=== PATIENT | male | born 1985 ===

== ENCOUNTER 2017-07-10 14:27 | Emergency (ER) | payer OTHER ==
[2017-07-10 14:43] VITALS: BP 138/81; PULSE 88; RESP 18; TEMP 97.7; O2SAT 98
[2017-07-10 16:46] LABS: BASO # 0.1 K/uL (0.0-0.2); EOS # 0.1 K/uL (0.0-0.7); EOS % 1.9 % (0.0-4.0); HEMOGLOBIN 16.5 g/dL (12.0-18.0); LYMPH # 1.9 K/uL (1.0-4.3); LYMPH % 26.1 % (20.0-40.0); MEAN CELL VOLUME 91.6 fl (80.0-94.0); MEAN CORPUSCULAR HEMOGLOBIN 31.9 pg (27.0-31.0); MEAN CORPUSCULAR HGB CONC 34.8 g/dL (33.0-37.0); MEAN PLATELET VOLUME 8.9 fl (7.2-11.7); MONO # 0.7 K/uL (0.0-0.8); MONO % 9.2 % (0.0-10.0); NEUT # 4.5 K/uL (1.8-7.0); NEUT % 61.8 % (50.0-75.0); NRBC % 0.1 % (0.0-0.0); RBC 5.18 Mil/uL (4.40-5.90); RED CELL DISTRIBUTION WIDTH 12.7 % (11.5-14.5); WHITE BLOOD COUNT 7.2 K/uL (4.8-10.8)
[2017-07-10 17:01] LABS: ALB/GLOB RATIO 1.4 (1.0-2.1); ALBUMIN 4.8 g/dL (3.5-5.0); ALT/SGPT 33 U/L (21-72); AST/SGOT 23 U/L (17-59); BLOOD UREA NITROGEN 16 mg/dl (9-20); CALCIUM 9.6 mg/dL (8.4-10.2); GFR AFRICAN-AMERICAN > 60; GFR NON-AFRICAN AMERICAN > 60
--- NOTE | 2017-07-10 17:10 | RAD ---
HISTORY: Left sided chest pain COMPARISON: No prior. TECHNIQUE: Chest PA and lateral FINDINGS: LUNGS: No active pulmonary disease. PLEURA: No significant pleural effusion identified. No pneumothorax apparent. CARDIOVASCULAR: Normal. OSSEOUS STRUCTURES: No significant abnormalities. VISUALIZED UPPER ABDOMEN: Normal. OTHER FINDINGS: None. IMPRESSION: No active disease.
--- NOTE | 2017-07-10 17:54 | ED PDOC ---
HPI: Back Time Seen by Provider: 07/10/17 14:46 Chief Complaint (Nursing): Abdominal Pain Chief Complaint (Provider): Left sided back pain History Per: Patient History/Exam Limitations: no limitations Onset/Duration Of Symptoms: Days (2 weeks ) Current Symptoms Are (Timing): Still Present Quality Of Discomfort: Sharp (Intermittent ) Severity: Moderate Pain Scale Rating Of: 8 Previous Symptoms: None Associated Symptoms: None Additional Complaint(s): PT reports pain for 2 weeks but feels it is getting worse. Pt has not been taking anything for pain. Denies SOB. Past Medical History Reviewed: Historical Data, Nursing Documentation, Vital Signs Vital Signs: Last Vital Signs Temp 97.7 F 07/10/17 14:41 Pulse 88 07/10/17 14:41 Resp 18 07/10/17 14:41 BP 138/81 07/10/17 14:41 Pulse Ox 98 07/10/17 14:41 - Medical History PMH: Hyperlipidemia Denies: Chronic Kidney Disease - Surgical History Surgical History: No Surg Hx - Family History Family History: States: No Known Family Hx - Living Arrangements Living Arrangements: With Family - Social History Current smoker - smoking cessation education provided: No Alcohol: None Drugs: Denies - Home Medications Home Medications: Ambulatory Orders Medication Instructions Recorded Cyclobenzaprine [Cyclobenzaprine 10 mg PO Q8H PRN #12 tab 07/10/17 HCl] Ibuprofen [Motrin Tab] 800 mg PO Q6H PRN #20 tab 07/10/17 - Allergies Allergies/Adverse Reactions: Allergies Allergy/AdvReac Type Severity Reaction Status Date / Time No Known Allergies Allergy Verified 07/10/17 14:41 Review of Systems ROS Statement: Except As Marked, All Systems Reviewed And Found Negative Constitutional: Negative for: Fever, Chills Respiratory: Negative for: Cough, Shortness of Breath Musculoskeletal: Positive for: Back Pain Physical Exam - Reviewed Nursing Documentation Reviewed: Yes Vital Signs Reviewed: Yes - Physical Exam Appears: Positive for: Well, Non-toxic, No Acute Distress Head Exam: Positive for: ATRAUMATIC, NORMAL INSPECTION, NORMOCEPHALIC Skin: Positive for: Normal Color, Warm, DRY Eye Exam: Positive for: Normal appearance ENT: Positive for: Normal ENT Inspection Neck: Positive for: Normal, Painless ROM Cardiovascular/Chest: Positive for: Regular Rate, Rhythm Respiratory: Positive for: Normal Breath Sounds. Negative for: Accessory Muscle Use, Respiratory Distress Gastrointestinal/Abdominal: Positive for: Normal Exam. Negative for: Tenderness Back: Positive for: Normal Inspection, Other (Tenderness left middle back with palpation ). Negative for: L CVA Tenderness, R CVA Tenderness, Vertebral Tenderness, Muscle Spasm Extremity: Positive for: Normal ROM Neurologic/Psych: Positive for: Alert, Oriented - Laboratory Results Result Diagrams: 07/10/17 16:36 07/10/17 16:36 - ECG O2 Sat by Pulse Oximetry: 98 Disposition - Clinical Impression Clinical Impression: Back pain - Patient ED Disposition Is Patient to be Admitted: No Counseled Patient/Family Regarding: Diagnosis, Need For Followup, Rx Given - Disposition Disposition: Routine/Home Disposition Time: 17:49 Condition: GOOD Prescriptions: Cyclobenzaprine [Cyclobenzaprine HCl] 10 mg PO Q8H PRN #12 tab PRN Reason: Muscle Spasm Ibuprofen [Motrin Tab] 800 mg PO Q6H PRN #20 tab PRN Reason: Pain Instructions: Musculoskeletal Pain (ED) Forms: [facility] (Setswana) Print Language: [place]
== END 2017-07-10 18:32 | disposition home or self-care (01) ==
LOC: H.ER 14:27 → EDBD 14:27 → H.ER 18:32
DX: M54.9 Dorsalgia, unspecified (principal); E78.5 Hyperlipidemia, unspecified

== ENCOUNTER 2017-07-22 23:09 | Emergency (ER) | payer SELFPAY ==
[2017-07-22 23:30] VITALS: RESP 18; O2SAT 99
--- NOTE | 2017-07-23 00:17 | ED PDOC ---
HPI: General Adult Time Seen by Provider: 07/23/17 00:17 Chief Complaint (Nursing): Flu-like Symptoms Chief Complaint (Provider): flu like symptoms History Per: Patient Additional Complaint(s): 32-year-old male presents with fever, nausea, vomiting, chills and body aches that started earlier today. Patient took Tylenol at 1 PM and then again at 9 PM. He vomited shortly after the second dose of Tylenol this evening. Denies any associated abdominal pain or diarrhea. PMD: none Past Medical History Reviewed: Historical Data, Nursing Documentation, Vital Signs Vital Signs: Last Vital Signs Temp 99.3 F 07/22/17 23:27 Pulse 98 H 07/22/17 23:27 Resp 18 07/22/17 23:27 BP 122/69 07/22/17 23:27 Pulse Ox 99 07/23/17 01:01 - Medical History PMH: Hyperlipidemia - Surgical History Surgical History: No Surg Hx - Family History Family History: States: No Known Family Hx - Living Arrangements Living Arrangements: With Family - Social History Current smoker - smoking cessation education provided: Yes (5 cigarettes per day ) Alcohol: None Drugs: Denies - Home Medications Home Medications: Ambulatory Orders Medication Instructions Recorded Cyclobenzaprine [Cyclobenzaprine 10 mg PO Q8H PRN #12 tab 07/10/17 HCl] Ibuprofen [Motrin Tab] 800 mg PO Q6H PRN #20 tab 07/10/17 Ondansetron [Zofran Odt] 4 mg PO ASDIR PRN #10 odt 07/23/17 Oseltamivir Phosphate [Tamiflu] 75 mg PO BID #10 capsule 07/23/17 - Allergies Allergies/Adverse Reactions: Allergies Allergy/AdvReac Type Severity Reaction Status Date / Time No Known Allergies Allergy Verified 07/10/17 14:41 Review of Systems ROS Statement: Except As Marked, All Systems Reviewed And Found Negative Constitutional: Positive for: Fever, Chills, Other (body aches) Cardiovascular: Negative for: Chest Pain Respiratory: Positive for: Cough Gastrointestinal: Positive for: Nausea, Vomiting. Negative for: Abdominal Pain , Diarrhea Neurological: Positive for: Headache. Negative for: Dizziness Physical Exam - Reviewed Nursing Documentation Reviewed: Yes Vital Signs Reviewed: Yes - Physical Exam Appears: Positive for: Well, Non-toxic, No Acute Distress Skin: Negative for: Rash Eye Exam: Positive for: Normal appearance ENT: Positive for: Normal ENT Inspection Neck: Positive for: Normal Cardiovascular/Chest: Positive for: Regular Rate, Rhythm Respiratory: Positive for: Normal Breath Sounds. Negative for: Wheezing, Respiratory Distress Gastrointestinal/Abdominal: Positive for: Soft. Negative for: Tenderness Back: Positive for: Normal Inspection Extremity: Positive for: Normal ROM Neurologic/Psych: Positive for: Alert, Oriented - Laboratory Results Result Diagrams: 07/23/17 01:00 07/23/17 01:00 - ECG O2 Sat by Pulse Oximetry: 99 Pulse Ox Interpretation: Normal - Other Rad CXR X-Ray: Interpreted by Me, Viewed By Me X-Ray Interpretation: no acute finding Medical Decision Making Medical Decision Makin32 year old with flu like symptoms Plan: CBC CMP Flu swab CXR IVF IV zofran PO motrin Patient is aware of all diagnostic testing results. Flu A is positive. Patient feels much better after meds administered. He is now able to tolerate water and juice without further emesis. Patient will be discharged with Zofran and Tamiflu. He was advised to alternate Tylenol and Motrin for fever control. Advised fluids and rest, follow up with primary doctor or clinic in 2-3 days. Disposition - Clinical Impression Clinical Impression: Influenza - Patient ED Disposition Is Patient to be Admitted: No Counseled Patient/Family Regarding: Studies Performed, Diagnosis, Need For Followup, Rx Given - Disposition Referrals: [facility] [Outside] Disposition: Routine/Home Disposition Time: 02:37 Condition: STABLE Additional Instructions: Alternate Tylenol every 4 hours and Motrin every 6 hours for fever and body aches. Take rx meds as directed. Follow-up with clinic in 2-3 days. Prescriptions: Ondansetron [Zofran Odt] 4 mg PO ASDIR PRN #10 odt PRN Reason: Nausea/Vomiting Oseltamivir Phosphate [Tamiflu] 75 mg PO BID #10 capsule Instructions: Influenza (ED) Forms: [id number] (Kiswahili), [facility] ED School/Work Excuse Print Language: KAZAKH
[2017-07-23] MEDS ORDERED: Sodium Chloride 0.9% 1,000 ML IV STA (00:28)
[2017-07-23 01:10] LABS: BASO % 0.3 % (0.0-2.0); EOS % 0.4 % (0.0-4.0); HEMOGLOBIN 15.1 g/dL (12.0-18.0); LYMPH # 0.4 K/uL (1.0-4.3); LYMPH % 5.1 % (20.0-40.0); MEAN CELL VOLUME 92.5 fl (80.0-94.0); MEAN CORPUSCULAR HEMOGLOBIN 30.9 pg (27.0-31.0); MEAN CORPUSCULAR HGB CONC 33.4 g/dL (33.0-37.0); MEAN PLATELET VOLUME 8.3 fl (7.2-11.7); MONO # 1.2 K/uL (0.0-0.8); MONO % 13.4 % (0.0-10.0); NEUT % 80.8 % (50.0-75.0); NRBC % 0.1 % (0.0-0.0); PLATELET COUNT 198 K/uL (130-400); RBC 4.88 Mil/uL (4.40-5.90); RED CELL DISTRIBUTION WIDTH 12.5 % (11.5-14.5); WHITE BLOOD COUNT 8.7 K/uL (4.8-10.8)
[2017-07-23 01:28] LABS: ALB/GLOB RATIO 1.6 (1.0-2.1); ALBUMIN 4.7 g/dL (3.5-5.0); ALT/SGPT 34 U/L (21-72); AST/SGOT 26 U/L (17-59); BLOOD UREA NITROGEN 13 mg/dl (9-20); CALCIUM 9.4 mg/dL (8.4-10.2); GFR AFRICAN-AMERICAN > 60; GFR NON-AFRICAN AMERICAN > 60
[2017-07-23 02:38] VITALS: BP 110/70; PULSE 92; TEMP 99.4
[2017-07-23 03:25] LABS: LYMPHOCYTE 8 % (20-50); MONOCYTE 13 % (0-10); NEUTROPHIL 79 % (42-75); PLATELET ESTIMATE NORMAL (NORMAL); TOTAL CELLS COUNTED 100
--- NOTE | 2017-07-23 09:20 | RAD ---
HISTORY: cough COMPARISON: Comparison chest 07/10/2017 TECHNIQUE: Chest PA and lateral FINDINGS: LUNGS: No active pulmonary disease. PLEURA: No significant pleural effusion identified. No pneumothorax apparent. CARDIOVASCULAR: Normal. OSSEOUS STRUCTURES: No significant abnormalities. VISUALIZED UPPER ABDOMEN: Normal. OTHER FINDINGS: None. IMPRESSION: No active disease.
== END 2017-07-23 02:52 | disposition home or self-care (01) ==
LOC: H.ER 23:09
DX: J09.X2 Influenza due to identified novel influenza A virus with other respiratory manifestations (principal); E78.5 Hyperlipidemia, unspecified; F17.210 Nicotine dependence, cigarettes, uncomplicated
CPT/HCPCS: 71046; 80053; 85025; 87804; 96360; 99283; J2405; J7040